=== PATIENT | male | born 1970 | race Caucasian/White ===

== ENCOUNTER → 2018-12-17 | Outpatient (REF) | LOC: ZLAB.WCH 15:14 | DX: Z01.89 Encounter for other specified special examinations (principal) | CPT/HCPCS: G0103 ==

== ENCOUNTER 2022-04-21 19:45 | Emergency (ER) | payer BC ==
[~2022-04-21] VITALS: Ht 185.4 cm; Wt 113.6 kg
[2022-04-21 19:57] VITALS: TEMP 98.7
[2022-04-21] MEDS ORDERED: ZESTRIL 20MG TA20 MG PO (20:01)
[2022-04-21 21:25] VITALS: BP 186/116; PULSE 94
== END 2022-04-21 21:24 | disposition home or self-care, planned readmission (81) ==
LOC: COL.ER 19:45
DX: K11.20 Sialoadenitis, unspecified (principal); Z28.310 Unvaccinated for COVID-19